=== PATIENT | female | born 1980 | race Caucasian/White ===

== ENCOUNTER 2016-11-12 15:55 | Emergency (ER) | payer MEDICAID ==
[2016-11-12 16:01] VITALS: BP 137/74
--- NOTE | 2016-11-12 16:54 | UC ---
Complaint Female HPI - HPI Summary HPI Summary: Patient is a 36yo with a history of recurrent UTI and yeast infections once per year presents with urinary frequency, burning, bilateral flank pain, dark urine , decreased urine output and a recent temp of 102.3 last evening (checked at home orally). She states this is her typical presentation of UTI, although she denies back pain during her previous UTI's. 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 She denies any current rashes, pain in her upper or lower extremities or similiar symptoms related to her previous infections. She endorses MYERS, but denies chest pain, SOB or abdominal pain. She states her back pain is intermittent and worse on the L side. Denies history of kidney stone, pyelonephritis, or other kidney pathology. Denies significant family history of renal pathology. Endorses strong family hx of heart disease, diabetes and COPD. Patient is a smoker. She states after each course of antibiotics she receives, it is followed by a yeast infection as she describes as burning, discharge and redness around the vaginal area. - History Of Current Complaint Chief Complaint: UCGU Stated Complaint: POSS UTI Time Seen by Provider: 11/12/16 16:09 Hx Last Menstrual Period: last week ?: No Onset/Duration: Gradual Onset Timing: Intermittent - back pain is intermittent, frequency and urgency constant Severity Initially: Mild Severity Currently: Moderate Pain Intensity: 5 Pain Scale Used: 0-10 Numeric Character: Burning Alleviating Factor(s): Nothing Associated Signs And Symptoms: Positive: Fever - 102.3, Back Pain - Risk Factors Ectopic Risk Factor: Maternal Age ^ 30 Ovarian Torsion Risk Factor: Reproductive Age - Allergies/Home Medications Allergies/Adverse Reactions: Allergies Allergy/AdvReac Type Severity Reaction Status Date / Time No Known Allergies Allergy Verified 11/12/16 16:01 Home Medications: Home Medications Acetaminophen 1,000 mg PO ONCE 11/12/16 [History Confirmed 11/12/16] PMH/Surg Hx/FS Hx/Imm Hx Previously Healthy: Yes Endocrine History Of: Denies: Diabetes Cardiovascular History Of: Denies: Hypertension - Surgical History Surgical History: None - Family History Known Family History: Positive: None, Cardiac Disease - Per EMR, Hypertension - father, Diabetes - father - Social History Occupation: Employed Part-time Lives: With Family Alcohol Use: None Substance Use Type: None Substance Use Comment - Amount & Last Used: Percocet 1-2 tabs daily,trying to wean self Smoking Status (MU): Heavy Every Day Tobacco Smoker Type: Cigarettes Amount Used/How Often: 1 PPD Length of Time of Smoking/Using Tobacco: years Have You Smoked in the Last Year: Yes Household Exposure Type: Cigarettes - Immunization History Most Recent Influenza Vaccination: no utd Most Recent Tetanus Shot: unknown Most Recent Pneumonia Vaccination: never Review of Systems Constitutional: Fever Skin: Negative Eyes: Negative Respiratory: Negative Cardiovascular: Negative Genitourinary: Dysuria, Frequency, Urgency, Other - denies hematuria Motor: Negative Neurological: Headache Psychological: Negative All Other Systems Reviewed And Are Negative: Yes Physical Exam Triage Information Reviewed: Yes Appearance: Well-Appearing, No Pain Distress, Well-Nourished Vital Signs: Initial Vital Signs Temp 97.9 F 11/12/16 15:57 Pulse 106 11/12/16 15:57 Resp 16 11/12/16 15:57 BP 137/74 11/12/16 15:57 Pulse Ox 100 11/12/16 15:57 Vital Signs Reviewed: Yes Eye Exam: Normal Eyes: Positive: Conjunctiva Clear ENT Exam: Normal ENT: Positive: Normal ENT inspection Dental Exam: Normal Neck exam: Normal Neck: Positive: Supple, Nontender, No Lymphadenopathy Respiratory Exam: Normal Respiratory: Positive: Chest non-tender, Lungs clear, Normal breath sounds Cardiovascular Exam: Normal Abdominal Exam: Normal Abdomen Description: Positive: Nontender, No Organomegaly, Soft, CVA Tenderness (R), CVA Tenderness (L) Bowel Sounds: Positive: Present Musculoskeletal Exam: Normal Musculoskeletal: Positive: Strength Intact, ROM Intact Neurological Exam: Normal Neurological: Positive: Alert, Muscle Tone Normal Psychological Exam: Normal Psychological: Positive: Age Appropriate Behavior Skin Exam: Normal Complaint Female Dx - Course Course Of Treatment: Patient history consistent with UTI. D/t recent and frequent antibiotic use, recent fever (none currently) and intermittent back pain - will treat with Cipro 500 PO once daily for 7 days per pyelonephritis/ complicated UTI protocol. Patient discharged with Difluacn d/t recurrent yeast infections s/p abx use and pyridoxine d/t frequency and urgency. Return precautions explained and patient agrees. - Differential Dx/Diagnosis Differential Diagnosis/HQI/PQRI: Cervicitis, Renal Colic, Ureteral Stone, Urinary Tract Infection Provider Diagnoses: Complicated UTI Discharge - Discharge Plan Condition: Stable Disposition: HOME Prescriptions: Ciprofloxacin TAB* [Cipro Tab*] 500 mg PO DAILY #7 tab MDD 1 Fluconazole 150 MG (NF) [Diflucan 150 mg (NF)] 150 mg PO ONCE #1 tab Phenazopyridine TAB* [Pyridium TAB*] 100 mg PO TID PRN #20 tab MDD 3 PRN Reason: Pain Patient Education Materials: Urinary Tract Infection in Women (ED), Phenazopyridine (By mouth), Vulvovaginal Candidiasis (ED) Referrals: No Primary Care Phys,NOPCP [Primary Care Provider] - Additional Instructions: Dx. Urinary Tract Infection Take antibiotic as prescribed to you. If you develop fever, worsening back pain or decreased urination, please return to . You have been prescribed diflucan for secondary yeast infection caused by the antibiotic. If you develop itching, white discharge or redness in the vaginal area, you make take the medication as prescribed. If symptoms do not improve, please come back to . Drink plenty of fluids. Supplement with cranberry or schneider juice. You may also take an over the counter cranberry supplement. If you have any questions about this, you may ask your pharmacist. If your symptoms have not improved in 1-2 days, please return to , the emergency room, or call your PCP. Please take any medications prescribed to you as directed. May take probiotics on opposite schedule of antibiotics. This helps prevent secondary yeast infections caused by the antibiotic medication. Pyridium: This medication is used to treat pain, burning, increased urination, and increased urge to urinate. These symptoms are usually caused by infection, injury, surgery, catheter, or other conditions that irritate the lower urinary tract. Pyridium will treat the symptoms of a urinary tract infection, but this medication does not treat the actual infection. Take the antibiotic that your doctor prescribes to treat your infection. Pyridium will most likely darken the color of your urine to an orange or red color. This is a normal effect and is not cause for alarm unless you have other symptoms such as pale or yellowed skin, fever, stomach pain, nausea, and vomiting. Darkened urine may also cause stains to your underwear, which may or may not be removed by laundering. It can also permanently stain soft contact lenses, and you should not wear them while taking this medicine.
== END 2016-11-12 16:40 | disposition home or self-care (01) ==
LOC: UCEAST 15:55
DX: N39.0 Urinary tract infection, site not specified (principal); Z87.440 Personal history of urinary (tract) infections; F17.210 Nicotine dependence, cigarettes, uncomplicated
CPT/HCPCS: 81002; 87077; 87086; 87186; 99212; G0463

== ENCOUNTER 2017-02-17 20:48 | Emergency (ER) | payer MEDICAID ==
[2017-02-17 21:19] VITALS: BP 128/78
--- NOTE | 2017-02-17 22:29 | UC ---
Dental HPI - HPI Summary HPI Summary: The patient comes in today for: 1. Painful tooth (upper left): Onset: 2 days ago. Palliative/provocative: Nothing makes the pain better or worse. Quality: ache Region: Upper left teeth area. Severity: 7/10 Time: Comes and goes. Associated symptoms: Fevers: No temperatures taken. Last dental visit: 5 years ago. Family dentist: None at this time, no appointment. * - History of Current Complaint Chief Complaint: UCDentalProblem Stated Complaint: TOOTH ABCESS Time Seen by Provider: 02/17/17 22:22 Hx Obtained From: Patient Hx Last Menstrual Period: last week - Allergies/Home Medications Allergies/Adverse Reactions: Allergies Allergy/AdvReac Type Severity Reaction Status Date / Time No Known Allergies Allergy Verified 11/12/16 16:01 Home Medications: Home Medications Ibuprofen [Advil] 600 mg PO 02/17/17 [History] PMH/Surg Hx/FS Hx/Imm Hx Previously Healthy: Yes Endocrine History Of: Denies: Diabetes, Thyroid Disease, Hyperthyroidism, Hypothyroidism, Dyslipidemia Cardiovascular History Of: Denies: Cardiac Disorders, Hypertension, Pacemaker/ICD, Myocardial Infarction , Congestive Heart Failure, Atrial Fibrillation, Deep Vein Thrombosis, Bleeding Disorders Respiratory History Of: Denies: COPD, Asthma, Bronchitis, Pneumonia, Pulmonary Embolism GI/ History Of: Denies: Gastroesophageal Reflux, Ulcer, Gastrointestinal Bleed, Gall Bladder Disease, Kidney Stones, Diverticulitis, Renal Disease, Urosepsis Neurological History Of: Denies: TIA, CVA, Dementia, Seizures, Migraine Psychological History Of: Denies: Anxiety, Depression, Bipolar Disorder, Schizophrenia, Post Traumatic Stress Disorder Cancer History Of: Denies: Lung Cancer, Colorectal Cancer, Breast Cancer, Prostate Cancer, Cervical Cancer Other History Of: Negative For: HIV, Hepatitis B, Hepatitis C, Anticoagulant Therapy - Surgical History Surgical History: None - Family History Known Family History: Positive: Cardiac Disease - Per EMR, Hypertension - father , Diabetes - father - Social History Occupation: Employed Full-time Alcohol Use: None Substance Use Type: None Substance Use Comment - Amount & Last Used: Percocet 1-2 tabs daily,trying to wean self Smoking Status (MU): Heavy Every Day Tobacco Smoker Type: Cigarettes Amount Used/How Often: 1 PPD Length of Time of Smoking/Using Tobacco: years Have You Smoked in the Last Year: Yes Household Exposure Type: Cigarettes - Immunization History Most Recent Influenza Vaccination: no utd Most Recent Tetanus Shot: unknown Most Recent Pneumonia Vaccination: never Review of Systems Constitutional: Negative Skin: Negative Eyes: Negative ENT: Dental Pain Respiratory: Negative Cardiovascular: Negative Gastrointestinal: Negative Genitourinary: Negative All Other Systems Reviewed And Are Negative: Yes Physical Exam Triage Information Reviewed: Yes Appearance: Well-Appearing, No Pain Distress, Well-Nourished Vital Signs: Initial Vital Signs Temp 97.9 F 02/17/17 21:15 Pulse 79 02/17/17 21:15 Resp 18 02/17/17 21:15 BP 128/78 02/17/17 21:15 Pulse Ox 100 02/17/17 21:15 Vital Signs Reviewed: Yes Eyes: Positive: Conjunctiva Clear. Negative: Discharge ENT: Positive: Hearing grossly normal. Negative: Pharyngeal erythema, Nasal congestion, Nasal drainage, TM bulging, TM dull, TM red, Tonsillar swelling, Tonsillar exudate Dental: Positive: Percussion Tenderness @ - #11 tooth is tender to percussion. But, all her teeth look blackened and eroded to the gum line., Gross Decay/ Caries @, Dental Fracture @ Neck: Positive: Supple, Nontender, No Lymphadenopathy. Negative: Nuchal Rigidity Respiratory: Positive: Lungs clear, No respiratory distress, No accessory muscle use. Negative: Crackles, Wheezing Cardiovascular: Positive: RRR, No Murmur Abdomen Description: Positive: Nontender, No Organomegaly, Soft. Negative: Distended, Guarding Musculoskeletal: Positive: Strength Intact, ROM Intact, No Edema Neurological: Positive: Alert, Muscle Tone Normal Psychological: Positive: Age Appropriate Behavior, Consolable Skin: Negative: rashes, breakdown Dental Complaint Course/Dx - Differential Dx/Diagnosis Differential Diagnosis/Dx: Dental Abscess, Dental Caries Provider Diagnoses: Pulpitis # 11. Dental caries Discharge - Discharge Plan Condition: Stable Disposition: HOME Patient Education Materials: Toothache (ED), Dental Abscess (ED) Additional Instructions: Please see your family dentist as soon as you can.
[2017-02-17] MEDS ORDERED: Naproxen TAB* 250 MG PO ONE (22:37)
[2017-02-17] MEDS ORDERED: Penicillin VK TAB* 250 MG PO ONE (22:37)
== END 2017-02-17 22:46 | disposition home or self-care (01) ==
LOC: UCEAST 20:48
DX: K04.01 Reversible pulpitis (principal); K02.9 Dental caries, unspecified; F17.210 Nicotine dependence, cigarettes, uncomplicated
CPT/HCPCS: 99212; A9270-GY; G0463

== ENCOUNTER 2017-07-03 20:20 | Emergency (ER) | payer MEDICAID ==
[2017-07-04] MEDS ORDERED: Clindamycin 600 MG IVPREMIX(* 600 MG in PREMIX* 0 ML IV ONE (00:10)
[2017-07-04 02:23] LABS: Hematocrit 47 % (35-47); Hemoglobin 15.4 g/dl (12.0-16.0); Mean Corpuscular HGB Conc 33 g/dl (31-36); Mean Corpuscular Hemoglobin 31 pg (27-31); Mean Corpuscular Volume 92 fL (80-97); Mean Platelet Volume 10 um3 (7.4-10.4); Red Blood Count 5.03 10^6/ul (4.0-5.4); Red Cell Distribution Width 13 % (10.5-15); White Blood Count 6.8 10^3/ul (3.5-10.8)
--- NOTE | 2017-07-04 04:01 | ED ---
Taylor Nieto Rebecca, scribed for Florence Adanuel on 07/04/17 at 0016 . Lower Extremity - HPI Summary HPI Summary: Pt is a 37 y/o F who presents to ED c/o bilateral LE pain, swelling and erythema. Sx began two days ago and have been constant since onset. Associated pain is currently moderate, ranked 6/10. Sx aggravated and alleviated by nothing. Denies abd pain, CP, SOB. PMHx leukocytoclastic vasculitis. - History of Current Complaint Chief Complaint: EDExtremityLower Stated Complaint: RASH ON BOTH LEGS Time Seen by Provider: 07/04/17 00:07 Hx Obtained From: Patient Hx Last Menstrual Period: last week Onset of Pain: Days - 2 days Onset/Duration: Still Present Severity Currently: Moderate Pain Intensity: 6 Pain Scale Used: 0-10 Numeric Timing: Constant Location: Is Discrete @ - Bilateral LE Associated Signs And Symptoms: Positive: Swelling, Redness Aggravating Factor(s): Nothing Alleviating Factor(s): Nothing - Allergies/Home Medications Allergies/Adverse Reactions: Allergies Allergy/AdvReac Type Severity Reaction Status Date / Time No Known Allergies Allergy Verified 07/03/17 20:30 PMH/Surg Hx/FS Hx/Imm Hx Endocrine/Hematology History: Reports: Other Endocrine/Hematological Disorders - Hx leukocytoclastic vasculitis Denies: Hx Anticoagulant Therapy, Hx Diabetes, Hx Thyroid Disease Cardiovascular History: Denies: Hx Congestive Heart Failure, Hx Deep Vein Thrombosis, Hx Hypertension , Hx Myocardial Infarction, Hx Pacemaker/ICD Respiratory History: Denies: Hx Asthma, Hx Chronic Obstructive Pulmonary Disease (COPD), Hx Lung Cancer, Hx Pneumonia, Hx Pulmonary Embolism GI History: Denies: Hx Gall Bladder Disease, Hx Gastrointestinal Bleed, Hx Ulcer, Hx Urosepsis History: Reports: Hx Kidney Infection Denies: Hx Kidney Stones, Hx Renal Disease Neurological History: Denies: Hx Dementia, Hx Migraine, Hx Seizures, Hx Transient Ischemic Attacks (TIA) Psychiatric History: Denies: Hx Anxiety, Hx Depression, Hx Schizophrenia, Hx Bipolar Disorder Infectious Disease History: No Infectious Disease History: Denies: Traveled Outside the [place] in Last 30 Days - Family History Known Family History: Positive: Cardiac Disease - Per EMR, Hypertension - father , Diabetes - father - Social History Alcohol Use: None Substance Use Type: Reports: None Substance Use Comment - Amount & Last Used: Percocet 1-2 tabs daily,trying to wean self Smoking Status (MU): Heavy Every Day Tobacco Smoker Type: Cigarettes Amount Used/How Often: 1 PPD Length of Time of Smoking/Using Tobacco: years Have You Smoked in the Last Year: Yes Review of Systems Negative: Chest Pain Negative: Shortness Of Breath Negative: Abdominal Pain Positive: Other - Bilateral LE swelling and pain Positive: Other - Bilateral LE erythema All Other Systems Reviewed And Are Negative: Yes Physical Exam - Summary Physical Exam Summary: Appearance: Well appearing, no pain distress Skin: warm, dry Head/face: normal Eyes: EOMI, CINDY ENT: normal Neck: supple, nontender Respiratory: CTA, breath sounds present Cardiovascular: RRR, pulses symmetrical Abdomen: nontender, soft Bowel: present Musculoskeletal: strength/ROM intact, bilateral leg swelling and erythema Neuro: normal, sensory motor intact, A&Ox3 Triage Information Reviewed: Yes Vital Signs On Initial Exam: Initial Vitals Temp Pulse Resp BP Pulse Ox 97.1 F 84 16 135/82 100 07/03/17 20:26 07/03/17 20:26 07/03/17 20:26 07/03/17 20:26 07/03/17 20:26 Vital Signs Reviewed: Yes Diagnostics - Vital Signs Vital Signs Temp Pulse Resp BP Pulse Ox 07/03/17 22:29 98.6 F 72 16 140/83 98 07/03/17 20:30 97.1 F 84 16 135/82 100 07/03/17 20:26 97.1 F 84 16 135/82 100 - Laboratory Result Diagrams: 07/04/17 01:30 Lab Statement: Any lab studies that have been ordered have been reviewed, and results considered in the medical decision making process. - Ultrasound No standard instances Ultrasound Interpretation: No Acute Changes - Doppler: No DVT. ED physician reviewed this radiology report and agrees. Ultrasound Interpretation Completed By: Radiologist Lower Extremity Course/Dx - Course Assessment/Plan: Pt is a 37 y/o F who presents to ED c/o bilateral LE pain, swelling and erythema. Sx began two days ago and have been constant since onset. Associated pain is currently moderate, ranked 6/10. Sx aggravated and alleviated by nothing. Denies abd pain, CP, SOB. PMHx leukocytoclastic vasculitis. Doppler Venous study negative for DVT. Pt will be D/C to home with Dx of bilateral LE cellulitis with Rx for Clindamycin with a followup with her PCP. She understands and agrees. Elevated BP noted and advised to f/u with PCP. - Diagnoses Provider Diagnoses: Bilateral cellulitis of lower leg Discharge - Discharge Plan Condition: Stable Disposition: HOME Prescriptions: Clindamycin Cap(NF) [Clindamycin Cap 300 mg Cap(NF)] 300 mg PO Q6H 40 Days Patient Education Materials: Cellulitis (ED) Referrals: [facility] [place] [place] [Outside] The documentation as recorded by the Taylor whitman Rebecca accurately reflects the service I personally performed and the decisions made by Antionette ibanez Emmanuel.
[2017-07-04 04:06] VITALS: BP 127/66
--- NOTE | 2017-07-04 07:41 | RAD ---
HISTORY: "Red, hot and swollen ankles x2 days" TECHNIQUE: Multiple transverse and longitudinal ultrasound images were obtained of the veins of the bilateral lower extremities using grayscale, color Doppler, and spectral Doppler imaging with and without compression and with augmentation. FINDINGS: VEINS: The common femoral vein, deep femoral vein, femoral vein and popliteal vein are compressible throughout their course, with normal flow on color Doppler imaging and normal response to augmentation on spectral Doppler imaging. SOFT TISSUES: Grossly normal. No large popliteal fossa cyst was identified. IMPRESSION: No sonographic evidence of deep vein thrombosis.
== END 2017-07-04 04:13 | disposition home or self-care (01) ==
LOC: ED 20:20
DX: L03.119 Cellulitis of unspecified part of limb (principal); F17.210 Nicotine dependence, cigarettes, uncomplicated
CPT/HCPCS: 36415; 85025; 85610; 85730; 87040; 93970; 99284

== ENCOUNTER 2018-07-14 14:26 | Emergency (ER) | payer MEDICAID ==
[2018-07-14 15:06] VITALS: BP 125/71
--- NOTE | 2018-07-14 15:22 | UC ---
Throat Pain/Nasal Kel HPI - HPI Summary HPI Summary: 38 y/o female presents to the urgent care c/o Sore throat for "awhile," finished a course of amoxicillin one week ago but does not feel any better. - History of Current Complaint Chief Complaint: UCGeneralIllness Stated Complaint: SORE THROAT Time Seen by Provider: 07/14/18 15:20 Hx Obtained From: Patient Hx Last Menstrual Period: 06/17/18 ?: No Onset/Duration: Gradual Onset, Lasting Weeks - 3 weeks, Worse Since - last week Severity: Moderate Pain Intensity: 4 Pain Scale Used: 0-10 Numeric Cough: Nonproductive Associated Signs & Symptoms: Positive: Dysphagia, Sinus Discomfort, Nasal Discharge - Epiglottits Risk Factors Epiglottis Risk Factors: Negative - Allergies/Home Medications Allergies/Adverse Reactions: Allergies Allergy/AdvReac Type Severity Reaction Status Date / Time No Known Allergies Allergy Verified 07/14/18 15:06 Home Medications: Home Medications Buprenorphine HCl/Naloxone HCl [Suboxone 12 mg-3 mg Sl Film] 1 film PO DAILY [History Confirmed 07/14/18] PMH/Surg Hx/FS Hx/Imm Hx Previously Healthy: Yes - Pt deneis PMHX Other History Of: Negative For: HIV, Hepatitis B, Hepatitis C, Anticoagulant Therapy - Surgical History Surgical History: None - Family History Known Family History: Positive: Cardiac Disease - Per EMR, Hypertension - father , Diabetes - father - Social History Occupation: Employed Full-time Lives: With Family Alcohol Use: None Substance Use Type: None Substance Use Comment - Amount & Last Used: Percocet 1-2 tabs daily,trying to wean self Smoking Status (MU): Heavy Every Day Tobacco Smoker Type: Cigarettes Amount Used/How Often: 1 PPD Length of Time of Smoking/Using Tobacco: years Have You Smoked in the Last Year: Yes Household Exposure Type: Cigarettes - Immunization History Most Recent Influenza Vaccination: no utd Most Recent Tetanus Shot: unknown Most Recent Pneumonia Vaccination: never Review of Systems Constitutional: Negative Skin: Negative Eyes: Negative ENT: Sore Throat, Nasal Discharge, Sinus Congestion, Sinus Pain/Tenderness Respiratory: Cough - dry Cardiovascular: Negative Gastrointestinal: Negative Genitourinary: Negative Motor: Negative Neurovascular: Negative Musculoskeletal: Negative Neurological: Headache Psychological: Negative Is Patient Immunocompromised?: No All Other Systems Reviewed And Are Negative: Yes Physical Exam - Summary Physical Exam Summary: Vitals: reviewed General: Well developed, well-nourished female patient with NAD. Head and face: Normocephalic and atraumatic, Positive tenderness over the frontal and maxillary sinuses.. Eyes: PERRLA, EOMI x 2. Normal conjunctiva. No eye discharge. ENT: Ears and TM with normal limits. Nose: edematous and erythematous nasal mucosa with with yellowish discharge and erythematous mucosa. Pharynx with erythema, no exudate. Neck: Supple, no JVD, no carotid bruits and no lymphadenopathy. Lungs: clear, no rales, no rhonchi, no wheezes. CVS: RRR, S1 and S2 present no murmurs or gallops appreciated. Abdomen: soft nontender with positive bowel sounds. Extremities: no edema noted. Neuro: WNL. Skin: warm and dry Triage Information Reviewed: Yes Vital Signs: Initial Vital Signs Temp 97.4 F 07/14/18 15:01 Pulse 72 07/14/18 15:01 Resp 18 07/14/18 15:01 BP 125/71 07/14/18 15:01 Pulse Ox 100 07/14/18 15:01 Throat Pain/Nasal Course/Dx - Course Course Of Treatment: Pt with 2 weeks of symptoms getting worse. Pt Rx Amoxicillin PO and flonase nasal spray. Tessalon PO for cough. Discharge instructions explained to Pt. Advised to Return to the clinic or PCP if symptoms do not improve.Pt understood and agreed with plan of care. - Differential Dx/Diagnosis Differential Diagnosis/HQI/PQRI: Laryngitis, Otitis Media, Pharyngitis, Sinusitis, Tonsillitis, URI Provider Diagnoses: 1- Acute bacterial sinusitis Discharge - Sign-Out/Discharge Documenting (check all that apply): Patient Departure - D/c home All imaging exams completed and their final reports reviewed: No Studies - Discharge Plan Condition: Stable Disposition: HOME Patient Education Materials: Sinusitis (ED) Referrals: [facility] – [place] [facility] REFERR[facility] [Outside] - 3 Days Additional Instructions: 1- Please increase fluid intake and rest. take full course of antibiotic to avoid resistance 2-Use Flonase as directed to help drain fluid. Also buy saline drops to clear sinuses 3-Take Sudafed or Claritin PO to alleviates sinus congestion 4-Return to the clinic or PCP if symptoms do not improve for further management and treatment - Billing Disposition and Condition Condition: STABLE Disposition: Home
== END 2018-07-14 15:54 | disposition home or self-care (01) ==
LOC: UCEAST 14:26
DX: J01.90 Acute sinusitis, unspecified (principal); F17.210 Nicotine dependence, cigarettes, uncomplicated
CPT/HCPCS: 87651; 99212; G0463

== ENCOUNTER 2018-11-07 10:24 | Emergency (ER) | payer OTHER ==
[2018-11-07 10:37] VITALS: BP 140/79
--- NOTE | 2018-11-07 10:50 | UC ---
[facility] Dental HPI - HPI Summary HPI Summary: 38-year-old woman comes in with a chief complaint of dental swelling. It's left lower started yesterday. Pain is worse with palpation or chewing better with not chewing. No fevers or chills. - History of Current Complaint Chief Complaint: UCDentalProblem Stated Complaint: TOOTHACHE Time Seen by Provider: 11/07/18 10:31 Hx Last Menstrual Period: 10/15/18 Pain Intensity: 4 - Allergies/Home Medications Allergies/Adverse Reactions: Allergies Allergy/AdvReac Type Severity Reaction Status Date / Time No Known Allergies Allergy Verified 11/07/18 10:37 Home Medications: Home Medications Norethindrone [Gloria] 0.35 mg PO DAILY 11/07/18 [History Confirmed 11/07/18] PMH/Surg Hx/FS Hx/Imm Hx Previously Healthy: Yes - ON SUBOXONE Other History Of: Negative For: HIV, Hepatitis B, Hepatitis C, Anticoagulant Therapy - Surgical History Surgical History: Yes Surgery Procedure, Year, and Place: cyst from neck removed, tonsillecomy - Family History Known Family History: Positive: Cardiac Disease - Per EMR, Hypertension - father , Diabetes - father - Social History Alcohol Use: None Substance Use Type: None Substance Use Comment - Amount & Last Used: suboxone Smoking Status (MU): Heavy Every Day Tobacco Smoker Type: Cigarettes Amount Used/How Often: 1 PPD Length of Time of Smoking/Using Tobacco: years Have You Smoked in the Last Year: Yes Household Exposure Type: Cigarettes - Immunization History Most Recent Influenza Vaccination: no utd Most Recent Tetanus Shot: unknown Most Recent Pneumonia Vaccination: never Review of Systems All Other Systems Reviewed And Are Negative: Yes Constitutional: Positive: Negative Skin: Positive: Negative Eyes: Positive: Negative ENT: Positive: Dental Pain Respiratory: Positive: Negative Cardiovascular: Positive: Negative Gastrointestinal: Positive: Negative Motor: Positive: Negative Neurovascular: Positive: Negative Musculoskeletal: Positive: Negative Neurological: Positive: Negative Psychological: Positive: Negative Is Patient Immunocompromised?: No Physical Exam Triage Information Reviewed: Yes Appearance: Well-Appearing, No Pain Distress, Well-Nourished Vital Signs: Initial Vital Signs Temp 98.8 F 11/07/18 10:32 Pulse 80 11/07/18 10:32 Resp 16 11/07/18 10:32 BP 140/79 11/07/18 10:32 Pulse Ox 97 11/07/18 10:32 Vital Signs Reviewed: Yes Eye Exam: Normal Eyes: Positive: Conjunctiva Clear ENT: Positive: Pharynx normal. Negative: Nasal congestion, Nasal drainage Dental: Positive: Gross Decay/Caries @ - DIFFUSE, Abscess @ - LEFT LOWER Neck exam: Normal Neck: Positive: Supple Respiratory: Positive: Lungs clear, Normal breath sounds, No respiratory distress Cardiovascular: Positive: RRR Musculoskeletal Exam: Normal Musculoskeletal: Positive: Strength Intact, ROM Intact Neurological Exam: Normal Neurological: Positive: Alert, Muscle Tone Normal Psychological Exam: Normal Psychological: Positive: Age Appropriate Behavior Skin Exam: Normal Dental Complaint Course/Dx - Differential Dx/Diagnosis Provider Diagnosis: Dental abscess Discharge - Sign-Out/Discharge Documenting (check all that apply): Patient Departure All imaging exams completed and their final reports reviewed: No Studies - Discharge Plan Condition: Stable Disposition: HOME Prescriptions: Amoxicillin PO (*) [Amoxicillin 500 MG CAP*] 500 mg PO TID #30 cap Patient Education Materials: Dental Abscess (ED) Referrals: [facility] [Outside] Additional Instructions: FOLLOW UP WITH YOUR DENTIST. GET RECHECKED FOR ANY WORSENING OF YOUR CONDITION OR QUESTIONS OR CONCERNS. - Billing Disposition and Condition Condition: STABLE Disposition: Home
== END 2018-11-07 10:58 | disposition home or self-care (01) ==
LOC: UCEAST 10:24
DX: K04.7 Periapical abscess without sinus (principal); F17.210 Nicotine dependence, cigarettes, uncomplicated
CPT/HCPCS: 99212; G0463

== ENCOUNTER 2018-12-24 10:43 | Emergency (ER) | payer OTHER ==
[2018-12-24 11:06] VITALS: BP 140/61
--- NOTE | 2018-12-24 11:14 | UC ---
Throat Pain/Nasal Kel HPI - HPI Summary HPI Summary: 38 yo female presents with sinus pain/pressure/congestion for the last 4 days. She tells me that she is scheduled for oral surgery on 12/27 and is worried her surgery will get canceled due to possible infection. She has not been taking anything OTC for her symptoms. Her 3 yo daughter has been sick with URI like symptoms. Denies fever, chills, sore throat, cough, SOB, rash, n/v. She is still smoking daily - History of Current Complaint Chief Complaint: UCGeneralIllness Stated Complaint: SINUS ISSUE Time Seen by Provider: 12/24/18 11:14 Hx Obtained From: Patient Hx Last Menstrual Period: 12/10/18 Onset/Duration: Gradual Onset Severity: Moderate Pain Intensity: 4 Pain Scale Used: 0-10 Numeric - Allergies/Home Medications Allergies/Adverse Reactions: Allergies Allergy/AdvReac Type Severity Reaction Status Date / Time No Known Allergies Allergy Verified 12/24/18 11:07 PMH/Surg Hx/FS Hx/Imm Hx - Additional Past Medical History Additional PMH: Narcotic abuse Other History Of: Negative For: HIV, Hepatitis B, Hepatitis C, Anticoagulant Therapy - Surgical History Surgical History: Yes Surgery Procedure, Year, and Place: cyst from neck removed, tonsillecomy - Family History Known Family History: Positive: Cardiac Disease - Per EMR, Hypertension - father , Diabetes - father - Social History Lives: With Family Alcohol Use: None Substance Use Type: None Substance Use Comment - Amount & Last Used: suboxone Smoking Status (MU): Heavy Every Day Tobacco Smoker Type: Cigarettes Amount Used/How Often: 1 PPD Length of Time of Smoking/Using Tobacco: years Have You Smoked in the Last Year: Yes Household Exposure Type: Cigarettes - Immunization History Most Recent Influenza Vaccination: no utd Most Recent Tetanus Shot: unknown Most Recent Pneumonia Vaccination: never Review of Systems All Other Systems Reviewed And Are Negative: Yes Constitutional: Positive: Negative Skin: Positive: Negative Eyes: Positive: Negative ENT: Positive: Nasal Discharge, Sinus Congestion, Sinus Pain/Tenderness Respiratory: Positive: Negative Cardiovascular: Positive: Negative Gastrointestinal: Positive: Negative Neurovascular: Positive: Negative Neurological: Positive: Negative Psychological: Positive: Negative Physical Exam - Summary Physical Exam Summary: GENERAL: NAD. WDWN. No pain distress. SKIN: No rashes, sores, lesions, or open wounds. HEENT: Head: AT/NC Eyes: EOM intact. Conjunctiva clear without inflammation or discharge. Ears: Hearing grossly normal. TMs intact, no bulging, erythema, or edema. Nose: Nasal mucosa mildly swollen and erythematous with yellow/ clear discharge. TTP maxillary and frontal sinus. Positive post nasal drip Throat: Posterior oropharynx without exudates, erythema, or tonsillar enlargement. Uvula midline. NECK: Supple. Nontender. No lymphadenopathy. CHEST: CTAB. No r/r/w. No accessory muscle use. Breathing comfortably and in no distress. CV: RRR. Without m/r/g. Pulses intact. NEURO: Alert. PSYCH: Age appropriate behavior. Triage Information Reviewed: Yes Vital Signs: Initial Vital Signs Temp 98.3 F 12/24/18 11:03 Pulse 73 12/24/18 11:03 Resp 20 12/24/18 11:03 BP 140/61 12/24/18 11:03 Pulse Ox 100 12/24/18 11:03 Vital Signs Reviewed: Yes Throat Pain/Nasal Course/Dx - Course Course Of Treatment: Sinusitis. Discussed viral vs bacterial causes, but given her upcoming oral surgery - pt requests to be on anbx at this time. - Differential Dx/Diagnosis Provider Diagnosis: Sinusitis Discharge - Sign-Out/Discharge Documenting (check all that apply): Patient Departure All imaging exams completed and their final reports reviewed: No Studies - Discharge Plan Condition: Stable Disposition: HOME Prescriptions: Amoxicillin PO (*) [Amoxicillin 875 MG (*)] 875 mg PO BID #14 tab Patient Education Materials: Sinusitis (ED) Forms: *Work Release Referrals: No Primary Care Phys,NOPCP [Primary Care Provider] - Additional Instructions: If you develop a fever, shortness of breath, chest pain, new or worsening symptoms - please call your PCP or go to the ED. - Billing Disposition and Condition Condition: STABLE Disposition: Home
== END 2018-12-24 11:35 | disposition home or self-care (01) ==
LOC: UCEAST 10:43
DX: J32.9 Chronic sinusitis, unspecified (principal); F17.210 Nicotine dependence, cigarettes, uncomplicated
CPT/HCPCS: 99212; G0463

== ENCOUNTER 2019-01-01 10:11 | Emergency (ER) | payer OTHER ==
[2019-01-01 10:19] VITALS: BP 140/95
--- NOTE | 2019-01-01 10:38 | UC ---
FLU HPI - HPI Summary HPI Summary: Ill since yesterday with flu-like symptoms. Increased urination but no burning, would like her urine checked for a UTI. - History of Current Complaint Chief Complaint: UCGeneralIllness Stated Complaint: FLU LIKE SYMP Time Seen by Provider: 01/01/19 10:37 Hx Obtained From: Patient Hx Last Menstrual Period: 12/18/18 ?: No Onset/Duration: Sudden Onset Severity Currently: Mild Severity Initially: Mild Pain Intensity: 5 Associated Signs & Symptoms: Positive: Fever, Myalgia, Nasal Congestion Related Hx: Smoking - Risk Factors Influenza Risk Factors: Negative - Allergy/Home Medications Allergies/Adverse Reactions: Allergies Allergy/AdvReac Type Severity Reaction Status Date / Time No Known Allergies Allergy Verified 01/01/19 10:19 PMH/Surg Hx/FS Hx/Imm Hx Previously Healthy: Yes Other History Of: Negative For: HIV, Hepatitis B, Hepatitis C, Anticoagulant Therapy - Surgical History Surgical History: Yes Surgery Procedure, Year, and Place: cyst from neck removed, tonsillecomy - Family History Known Family History: Positive: Cardiac Disease - Per EMR, Hypertension - father , Diabetes - father - Social History Occupation: Employed Full-time Lives: With Family Alcohol Use: None Substance Use Type: None Substance Use Comment - Amount & Last Used: suboxone Smoking Status (MU): Heavy Every Day Tobacco Smoker Type: Cigarettes Amount Used/How Often: 1 PPD Length of Time of Smoking/Using Tobacco: years Have You Smoked in the Last Year: Yes Household Exposure Type: Cigarettes - Immunization History Most Recent Influenza Vaccination: no utd Most Recent Tetanus Shot: unknown Most Recent Pneumonia Vaccination: never Review of Systems All Other Systems Reviewed And Are Negative: Yes Constitutional: Positive: Fever, Chills, Fatigue Skin: Positive: Negative Eyes: Positive: Negative ENT: Positive: Nasal Discharge Respiratory: Positive: Cough - Occasional dry cough Cardiovascular: Positive: Negative Gastrointestinal: Positive: Negative Genitourinary: Positive: Frequency. Negative: Dysuria, Vaginal/Penile Burning, Vaginal/Penile Itching, Vaginal/Penile Discharge Motor: Positive: Negative Neurovascular: Positive: Negative Musculoskeletal: Positive: Myalgia Neurological: Positive: Negative Psychological: Positive: Negative Is Patient Immunocompromised?: No Physical Exam Triage Information Reviewed: Yes Appearance: Well-Appearing, No Pain Distress, Well-Nourished Vital Signs: Initial Vital Signs Temp 98.8 F 01/01/19 10:16 Pulse 92 01/01/19 10:16 Resp 18 01/01/19 10:16 BP 140/95 01/01/19 10:16 Pulse Ox 100 01/01/19 10:16 Eye Exam: Normal ENT Exam: Normal Neck exam: Normal Respiratory Exam: Normal Cardiovascular Exam: Normal Abdominal Exam: Normal Bowel Sounds: Positive: Present Musculoskeletal Exam: Normal Neurological Exam: Normal Psychological Exam: Normal Skin Exam: Normal Flu Course/Dx - Course Course Of Treatment: Comfortable here in no distress - Differential Dx/Diagnosis Differential Diagnosis/HQI/PQRI: Upper Respiratory Infection Provider Diagnosis: URI (upper respiratory infection) Discharge - Sign-Out/Discharge Documenting (check all that apply): Patient Departure All imaging exams completed and their final reports reviewed: No Studies - Discharge Plan Condition: Fair Disposition: HOME Patient Education Materials: Upper Respiratory Infection (DC) Forms: *Work Release Referrals: No Primary Care Phys,NOPCP [Primary Care Provider] - Additional Instructions: Rest, increase fluids, May take Tylenol every 4 hours and Motrin every 6-8 hours as needed for fever and/or pain. May follow up with [facility] if no improvement in 3-4 days. [phone], they can help find a primary care provider for you. - Billing Disposition and Condition Condition: FAIR Disposition: Home
[2019-01-01 11:13] LABS: Influenza A Molecular NEGATIVE (Negative); Influenza B Molecular NEGATIVE (Negative)
== END 2019-01-01 11:46 | disposition home or self-care (01) ==
LOC: UCEAST 10:11
DX: J06.9 Acute upper respiratory infection, unspecified (principal); F17.210 Nicotine dependence, cigarettes, uncomplicated
CPT/HCPCS: 81003; 99211; G0463